=== PATIENT | male | born 1980 | race Caucasian/White ===

== ENCOUNTER 2019-02-09 15:47 | Emergency (ER) | payer OTHER ==
[2019-02-09 15:55] VITALS: BP 146/89; PULSE 69; TEMP 97.4; BMI 25.0
[2019-02-09] MEDS ORDERED: KETOROLAC TROMETHAMINE 30 MG/1 ML VIAL IM ONE (16:01)
[2019-02-09] MEDS ORDERED: LIDOCAINE 5% TOPICAL PATCH TP ONE (16:01)
[2019-02-09] MEDS ORDERED: ACETAMINOPHEN 325 MG TABLET (FP) PO ONE (16:01)
[2019-02-09] MEDS ORDERED: DEXAMETHASONE 4 MG TABLET (FP) PO ONE (16:09)
--- NOTE | 2019-02-09 16:09 | PDOC ---
History of Present Illness - General Chief Complaint: Back Pain Stated Complaint: LOW BACK PAIN Time Seen by Provider: 02/09/19 15:49 - History of Present Illness Initial Comments: The pt is a 39M w/ a history of chronic back pain 2/2 a herniated lumbar disc who presents for evaluation of acute on chronic back pain. The pt reports intermittent sharp, left paraspinal pain that, for the first time today, radiated down the back of his left leg to his knee. He denies weakness, changes in sensation, bowel/bladder incontinence/retention, falls, fevers. Denies any previous back surgery/injections. 02/09/19 16:04 Past History - Past Medical History Allergies/Adverse Reactions: Allergies Allergy/AdvReac Type Severity Reaction Status Date / Time Penicillins Allergy Unknown Verified 02/09/19 16:04 Home Medications: Ambulatory Orders Cyclobenzaprine HCl [Flexeril 10 mg] 10 mg PO BID PRN 02/09/19 Naproxen 500 mg PO BID #14 tablet 02/09/19 - Psycho Social/Smoking Cessation Hx Smoking History: Never smoked Hx Alcohol Use: Yes Drug/Substance Use Hx: Yes (OCCASIONAL MARIJUANA) Review of Systems - Review of Systems Able to Perform ROS?: Yes Comments:: GENERAL/CONSTITUTIONAL: No fever or chills. No weakness HEAD, EYES, EARS, NOSE AND THROAT: No change in vision. No change in hearing. No sore throat CARDIOVASCULAR: No chest pain or shortness of breath RESPIRATORY: Denies cough, hemoptysis GASTROINTESTINAL: No nausea, vomiting, diarrhea or constipation GENITOURINARY: No dysuria, frequency, or change in urination MUSCULOSKELETAL: No joint or muscle swelling or pain. No neck pain SKIN: No rash NEUROLOGIC: No headache, vertigo, loss of consciousness, or change in strength/ sensation ENDOCRINE: No increased thirst. No abnormal weight change HEMATOLOGIC/LYMPHATIC: No anemia, easy bleeding, or history of blood clots ALLERGIC/IMMUNOLOGIC: No hives or skin allergy 02/09/19 16:01 Is the patient limited Japanese proficient: No *Physical Exam - Vital Signs Last Vital Signs Temp Pulse Resp BP Pulse Ox 97.4 F L 69 16 146/89 100 02/09/19 15:48 02/09/19 15:48 02/09/19 15:48 02/09/19 15:48 02/09/19 15:48 - Physical Exam GENERAL: Awake, alert, and oriented to person/place/time, in no acute distress HEAD: No signs of trauma, normocephalic, atraumatic EYES: PERRLA, EOMI, sclera anicteric, conjunctiva clear ENT: Hearing grossly normal, nares patent, oropharynx clear without exudates. Moist mucosa LUNGS: No distress, speaks in full sentences, clear to auscultation bilaterally HEART: Regular rate and rhythm, normal S1 and S2, no murmurs appreciated, peripheral pulses normal and equal bilaterally ABDOMEN: Soft, nontender, normoactive bowel sounds. No guarding, no rebound BACK: No midline TTP, no step-offs EXTREMITIES: Normal inspection, Normal range of motion, no edema. No clubbing or cyanosis; Mild decreased left hip flexion 2/2 pain. Ambulating with stable gait NEUROLOGICAL: Cranial nerves II through XII grossly intact. Normal speech, no focal sensorimotor deficits SKIN: Warm, Dry 02/09/19 16:02 Medical Decision Making - Medical Decision Making The pt is a 39M w/ a history of chronic back pain 2/2 a herniated lumbar disc who presents for evaluation of acute on chronic back pain. ED Course No imaging indicated at this time. Pt reports MRI performed 04/2018 w/ herniated lumbar disc Will give Toradol, Tylenol, Lidoderm patch, and Decadron for symptomatic relief Will give referral to Ortho Spine Plan for D/C w/ PCP/ortho spine f/u Discharge instructions and return precautions given Patient in agreement and verbalized understanding Dispo: Home 02/09/19 16:10 Discharge - Discharge Information Problems reviewed: Yes Clinical Impression/Diagnosis: Acute exacerbation of chronic low back pain Condition: Good - Admission No - Follow up/Referral Referrals: Leticia Heller MD [Primary Care Provider] - Enrique Parkinson MD [Staff Physician] - Osvaldo Warren MD [Staff Physician] - Luis Trinidad MD [Staff Physician] - - Patient Discharge Instructions Patient Printed Discharge Instructions: DI for Low Back Pain Additional Instructions: You were seen in the Emergency Department for evaluation of back pain. Your were treated with Lidoderm patches, Tylenol, Toradol (NSAID), and Decadron ( steroid). Review the hand out provided at discharge and follow with your primary care provider. A Spine referral was also given, please follow up with them or your preferred Spine Surgeon. You were also given two referrals for Pain Management if you would like to establish care with one such physician. Return to the Emergency Department if you develop fevers/chills, changes in sensation, bowel/bladder incontinence or retention, worsening symptoms, or any new/concerning symptoms. - Post Discharge Activity Work/Back to School Note: Back to Work
[2019-02-09] MEDS ORDERED: ACETAMINOPHEN 500 MG TABLET (FP) ONE (16:13)
[2019-02-09] MEDS ORDERED: DEXAMETHASONE 4 MG TABLET (FP) ONE (16:13)
--- NOTE | 2019-02-09 16:14 | PDOC ---
Attending Attestation - Resident Resident Name: Ciro Osman - ED Attending Attestation I have performed the following: I have examined & evaluated the patient, The case was reviewed & discussed with the resident, I agree w/resident's findings & plan, Exceptions are as noted - HPI HPI: 02/09/19 16:12 39 M with h/o herniated disc presents to ED with lower back pain. Pt states that he was doing some heavy lifting at work 2 weeks ago and exacerbated his chronic lower back pain. Denies any falls or injuries. States that it is a sharp pain on the L side that is worse with certain movements and going down stairs. Denies any weakness/numbness in either leg. No incontinence. No saddle anesthesia. - Physicial Exam PE: 02/09/19 16:13 "GENERAL: Awake, alert, and fully oriented, in no acute distress. HEAD: No signs of trauma EYES: PERRLA, EOMI, sclera anicteric, conjunctiva clear ENT: Auricles normal inspection, hearing grossly normal, nares patent, oropharynx clear without exudates. Moist mucosa NECK: Nontender, no stepoffs, Normal ROM, supple, no lymphadenopathy, JVD, or masses LUNGS: Breath sounds equal, clear to auscultation bilaterally. No wheezes, and no crackles HEART: Regular rate and rhythm, normal S1 and S2, no murmurs, rubs or gallops ABDOMEN: Soft, nontender, normoactive bowel sounds. No guarding, no rebound. No masses EXTREMITIES: Normal range of motion, no edema. No clubbing or cyanosis. No cords, erythema, or tenderness NEUROLOGICAL: Cranial nerves II through XII intact. 5/5 strength and sensation in all extremities, Normal speech, normal gait, normal cerebellar function SKIN: Warm, Dry, normal turgor, no rashes or lesions noted. - Medical Decision Making 02/09/19 16:14 39 M with acute on chronic L lower back pain, likely 2/2 herniated disc. Neuro exam completely normal. - NSAID, steroids - f/u ortho spine Pt is well appearing, with normal vitals. Clinically stable for DC at this time. I discussed the physical exam findings, ancillary test results and final diagnoses with the patient. I answered all of the patient's questions. The patient was satisfied with the care received and felt comfortable with the discharge plan and treatment plan. The patient agrees to follow up with the primary care physician within 24-72 hours.
[2019-02-09] MEDS ORDERED: LIDOCAINE PATCH REMOVAL MC SCH (22:00)
== END 2019-02-09 16:40 | disposition home or self-care (01) ==
LOC: FER 15:47
PROC: 3E0233Z Introduction of Anti-inflammatory into Muscle, Percutaneous Approach (ICD-10-PCS; principal; 2019-02-09)
DX: M54.5 Low back pain (principal); G89.29 Other chronic pain; Z88.0 Allergy status to penicillin
CPT/HCPCS: 99282-25